=== PATIENT | female | born 1980 | race Two or more races ===

== ENCOUNTER 2024-11-13 12:16 | Emergency (ER) | payer BC | END 2024-11-13 14:18 | disposition home or self-care (01) | LOC: MW.ED 12:16 | DX: S52.502A Unspecified fracture of the lower end of left radius, initial encounter for closed fracture (principal); Z75.8 Other problems related to medical facilities and other health care; Z88.8 Allergy status to other drugs, medicaments and biological substances; Z79.899 Other long term (current) drug therapy; W11.XXXA Fall on and from ladder, initial encounter | CPT/HCPCS: 73090-26-LT; 73090-LT; 73130-26-LT; 73130-LT; 99283 ==

== ENCOUNTER 2025-03-19 08:28 | Day surgery (SDC) | payer BC, OTHER ==
[~2025-03-19 08:28] MED LIST: Albuterol 0.083% 2.5 MG/3 ML Neb Soln NEB PRN; Ferric Subsulfate Topical Soln 8 GM (8 ML) Bottle ONE; HYDROmorphone 1 MG/ML Syringe IVPUSH PRN; Iodine/Potassium Iodide 5% Solution 14 ML Bottle ONE; Lidocaine 1% with EPINEPHrine 1:100,000 10 ML MDV ONE; Metoclopramide 10 MG/2 ML SDV IVPUSH PRN; Morphine 2 MG/ML SYRINGE IVPUSH PRN; Naloxone 0.4 MG/ML SDV IVPUSH PRN; Ondansetron 4 MG/2 ML SDV IVPUSH PRN; Phenylephrine HCl In 0.9% NaCl 1 MG/10 ML Syringe IVPUSH PRN; fentaNYL 50 MCG/ML SDV IVPUSH PRN
[2025-03-19] MEDS ORDERED: Propofol 200 MG/20 ML SDV ONE (09:05)
[2025-03-19] MEDS ORDERED: Midazolam 1 MG/ML 2 ML SDV ONE (09:05)
[2025-03-19] MEDS: Lactated Ringers 1,000 ML IV SCH (09:05)
[2025-03-19] MEDS ORDERED: fentaNYL 100 MCG/2 ML SDV ONE (09:05)
[2025-03-19] MEDS ORDERED: Lidocaine 2% 5 ML SDV ONE (09:06)
[2025-03-19] MEDS ORDERED: Dexamethasone 4 MG/ML 5 ML MDV ONE (10:54)
[2025-03-19] MEDS ORDERED: Ondansetron 4 MG/2 ML SDV ONE (10:54)
[2025-03-19] MEDS ORDERED: Glycopyrrolate 0.2 MG/ML SDV ONE (10:56)
[2025-03-19] MEDS ORDERED: Ketorolac 30 MG/ML SDV ONE (10:59)
== END 2025-03-19 12:20 | disposition home or self-care (01) ==
LOC: MW.SDS 08:28
PROVIDERS: ATTEND Obstetrics & Gynecology
DX: R87.612 Low grade squamous intraepithelial lesion on cytologic smear of cervix (LGSIL) (principal); N72 Inflammatory disease of cervix uteri; F17.210 Nicotine dependence, cigarettes, uncomplicated; Z79.899 Other long term (current) drug therapy
CPT/HCPCS: 00940; A9270-GY; J1100; J1596; J1885; J2003; J2250; J2405; J2704; J3010; J3490; J7120